=== PATIENT | female | born 1960 ===

== ENCOUNTER → 2018-07-07 | Outpatient (CLI) | payer BC, OTHER | LOC: BRMIMAGING 15:14 | PROVIDERS: ATTEND Family Medicine | DX: Z12.31 Encounter for screening mammogram for malignant neoplasm of breast (principal) ==

== ENCOUNTER → 2018-07-19 | Outpatient (CLI) | payer BC | LOC: BRMIMAGING 09:55 | PROVIDERS: ATTEND Family Medicine | DX: R92.8 Other abnormal and inconclusive findings on diagnostic imaging of breast (principal) ==